=== PATIENT | male | born 1950 | race Caucasian/White ===

== ENCOUNTER → 2017-01-04 | Outpatient (CLI) | payer MEDICARE, OTHER ==
[~2017-01-04] MED LIST: AMITRIPTYLINE100 MG PO; BACTRIM DS 8001 TA1 PO; BENAZEPRIL HYDR20 MG OR; BENAZEPRIL20 MG PO; CEPHALEXIN500 MG PO; CIPRO 500MG TA500 MG PO; DICLOFENAC SODI75 M2 PO; DICLOFENAC SODI75 M4 PO; HYDROCODONE-APA1 TA1 PO; IBUPROFEN200 MG PO; LORTAB 5/3251 TAB PO; LORTAB 500 MG-11 TAB PO; LOTREL 2.5 MG-11 CAP PO; LOTREL1 CA2 PO; LOVENOX 4040 MG/0.1 IJ; NEXIUM40 MG PO; PERCOCET 325 MG1 TA3 PO; PERCOCET 5/3251 EACH PO; PRILOSEC OTC20 MG PO; TORADOL10 M1 PO; TRAVATAN Z 5 ML5 ML OP; TRAVOPROST 0.02.5 ML OP; TREXIMET 500 MG1 TAB PO
--- NOTE | 2017-01-04 16:01 | RADIOLOGY REPORT PS360 ---
ELBOW-LT-3 VIEWS HISTORY: LEFT ELBOW PAIN ORDERING PHYSICIAN: Rashad Vu MD PATIENT AGE: 66 years COMPARISON: None FINDINGS: Moderate osteoarthritic changes are present involving the elbow. Multiple calcifications are present in the antecubital fossa system with synovial osteochondromas. No obvious fracture or dislocation. There is soft tissues 1 at the olecranon with faint calcification of an enthesophyte at the olecranon. IMPRESSION: 1. Moderate osteoarthritic changes of the elbow. 2. 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 3. Olecranon bursitis
== END ==
LOC: RAD 15:26
DX: M25.522 Pain in left elbow (principal)